=== PATIENT | female | born 1980 | race Caucasian/White ===

== ENCOUNTER 2017-07-06 12:13 | Outpatient (CLI) | payer BC ==
[~2017-07-06] VITALS: Ht 175.3 cm; Wt 86.7 kg
[2017-07-06] MEDS ORDERED: IBUP-1780 PO (12:26)
[2017-07-06] MEDS ORDERED: TRAM50TA2 PO (12:26)
[2017-07-06] MEDS ORDERED: TRAZ100T92 PO (12:26)
[2017-07-06] MEDS ORDERED: ALPR0.25 PO (12:26)
[2017-07-06 12:29] VITALS: BP 111/68
[2017-07-13] MEDS ORDERED: ACHD5005 PO (14:09)
== END 2017-07-06 14:40 | disposition home or self-care (01) ==
LOC: PREOP 12:13 → EDUNIT# 12:30 → PREOP 14:40
PROVIDERS: ATTEND Podiatrist Foot & Ankle Surgery
DX: Z01.818 Encounter for other preprocedural examination (principal); Z11.2 Encounter for screening for other bacterial diseases; M76.62 Achilles tendinitis, left leg; M89.9 Disorder of bone, unspecified
CPT/HCPCS: 87081

== ENCOUNTER 2017-07-13 10:17 | Day surgery (SDC) | payer BC ==
[~2017-07-13] VITALS: Ht 175.3 cm; Wt 86.7 kg
[2017-07-13 10:17] VITALS: BP 116/83
[~2017-07-13 10:17] MED LIST: ALPR0.25 PO; BUPIVACAINE 0.5% 30 ML (SENSORCAINE) VIAL ONE; DEXAMETHASONE 10 MG/ML (DECADRON) 1 ML VIAL ONE; IBUP-1780 PO; TRAM50TA2 PO; TRAZ100T92 PO
[2017-07-13] MEDS ORDERED: ceFAZolin INJECTION 1,000 MG in NS (IVPB) 100 ML IV ONE (10:30)
[2017-07-13] MEDS ORDERED: LIDOCAINE PF 2% 5 ML (XYLOCAINE) VIAL ONE (10:41)
[2017-07-13] MEDS ORDERED: ROCURONIUM 10 MG/ML 5 ML SYRINGE IV ONE (10:41)
[2017-07-13] MEDS ORDERED: ONDANSETRON 4 MG/2 ML (SDV) Z0FRAN ONE (10:41)
[2017-07-13] MEDS ORDERED: DEXAMETHASONE 10 MG/ML (DECADRON) 1 ML VIAL ONE (10:41)
[2017-07-13] MEDS ORDERED: SEVOFLURANE (ULTANE) 15 ML INHAL SOLN ONE ×6 (10:41→14:05)
[2017-07-13] MEDS ORDERED: proPOfol 200 MG/20 ML (DIPRIVAN) VIAL IV ONE ×2 (10:41→12:41)
[2017-07-13] MEDS ORDERED: fentaNYL INJECTION 100 MCG/2 ML AMP ONE ×2 (10:42→14:23)
[2017-07-13] MEDS ORDERED: MIDAZOLAM 2 MG/2 ML (VERSED) VIAL ONE (10:42)
[2017-07-13] MEDS: LACTATED RINGERS 1,000 ML IV PRN ×2 (11:18→13:17)
[2017-07-13] MEDS ORDERED: LORA1TAB38 PO (11:22)
[2017-07-13] MEDS ORDERED: AMOX500T2 PO (11:22)
--- NOTE | 2017-07-13 12:15 | Progress Note-Pre Operative ---
Pre-Operative Progress Note H&P Reviewed The H&P was reviewed, patient examined and no changes noted. Date Seen by Provider: July 13, 2017 Time Seen by Provider: 12:14 Date H&P Reviewed: July 13, 2017 Time H&P Reviewed: 12:14 Pre-Operative Diagnosis: Retrocalcaneal Exostosis, Achilles Tendonosis, left foot ALETHEA PACHECO DPM July 13, 2017 12:15 pm
[2017-07-13] MEDS ORDERED: ROPIVACAINE 5MG/ML 30ML VIAL ONE (13:09)
[2017-07-13] MEDS ORDERED: PHENYLEPHRINE 100 MCG/ML 10 ML (ANESTHESIA) SYR ONE (13:47)
[2017-07-13] MEDS ORDERED: LACTATED RINGERS 1,000 ML IV SCH (14:04)
--- NOTE | 2017-07-13 14:04 | Progress Note-Post Operative ---
Post-Operative Progess Note Surgeon (s)/Material Chaser (s) Surgeon ALETHEA PACHECO DPM Material Chaser: none Pre-Operative Diagnosis Retrocalcaneal Exostosis, Achilles Tendonosis, left foot Post-Operative Diagnosis Same Procedure & Operative Findings Date of Procedure 07/13/17 Procedure Performed/Findings Achilles tendon repair, exostectomy, left foot Anesthesia Type General Estimated Blood Loss Estimated blood loss (mL): Minimal Specimens/Packing Specimens Removed Achilles Tendon ALETHEA PACHECO DPM July 13, 2017 2:04 pm
[2017-07-13] MEDS ORDERED: ACHD5005 PO (14:09)
[2017-07-13] MEDS ORDERED: HYDROcodone/APAP 5 MG/325 MG (LORTAB) TAB PO PRN (14:15)
[2017-07-13] MEDS ORDERED: MEPERIDINE (DEMEROL) INJ 50 MG/ML IVP PRN (14:15)
[2017-07-13] MEDS ORDERED: ONDANSETRON 4 MG/2 ML (SDV) Z0FRAN IVP PRN (14:15)
[2017-07-13] MEDS: fentaNYL INJECTION 100 MCG/2 ML AMP IVP PRN ×3 (14:28→14:40)
--- NOTE | 2017-07-13 15:00 | Anesthesia-General Post-Op ---
General Patient Condition Mental Status/LOC: Same as Preop Cardiovascular: Satisfactory Nausea/Vomiting: Absent Respiratory: Satisfactory Pain: Controlled Complications: Absent Post Op Complications Complications None Follow Up Care/Instructions Patient Instructions None needed. Anesthesia/Patient Condition Patient Condition Patient is doing well, no complaints, stable vital signs, no apparent adverse anesthesia problems. No complications reported per nursing. MARGARETTE CRESPO CRNA July 13, 2017 15:00
[2017-07-13 15:10] VITALS: BP 106/69
[2017-07-13] MEDS ORDERED: HYDROcodone/APAP 5 MG/325 MG (LORTAB) TAB ONE (15:16)
[2017-07-13 15:45] VITALS: BP 108/68
--- NOTE | 2017-07-13 16:18 | Diagnostic Imaging Report ---
INDICATION: Postoperative evaluation, Achilles tendon repair. COMPARISON: None. FINDINGS: Two views of the left foot are obtained through cast material. There are postoperative changes of Achilles tendon repair. Two metallic anchors are seen within the posterior os calcis. Minimal subcutaneous gas along the region of the Achilles tendon is likely postoperative. No additional fracture, malalignment, or osseous destructive process is seen. IMPRESSION: Satisfactory postoperative changes of recent Achilles tendon repair. No acute osseous abnormality is suspected. Dictated by: Dictated on workstation # [id number]
--- NOTE | 2017-07-13 16:27 | Physical Therapy Ortho Eval ---
PT Orthopedic Evaluation Type of Surgery achilles tendon repair. Prior Level of Function Current Living Status: Spouse Locomotion (Upon Admit): Independent Established Durable Medical Eq: None (pt given crutches), Standard Bedside Commode Subjective Subjective Agreeable. Reports she has not used crutches before. Reports she plans to stay on 1 level primarily in her home. Entry Into Home: Stairs Without Railing Steps Into Home: 3 Steps Inside Home: 13 Steps Accessories: No Railing Motor Control Motor Control: Motor Control WNL ROM ROM: WFL Strength Strength: WFL Transfer Transfers (B, C, W/C) (FIM): 5 (6 post treatment) Gait Gait Assistive Device: Crutches Right Lower Extremity: Right Weight Bearing Status RLE: Full Weight Bearing Left Lower Extremity: Left Weight Bearing Status LLE: Non Weight Bearing Other Weight Bearing Inst.: instuctions on NWB status Gait (FIM): 5 (6 post treatment) Distance (FIM): 3=150 ft Summary/Comments Gait training and education on safe use of crutches. Adjusted the crutches. Educated on height adjustment of crutches. Educated pt on stairs. Stair training. Also educated on going up/down steps on her buttock if necessary and demosntrated how to perform, verbalized understanding. Treatment Rendered Treatment: Gait Train, Step Train (practiced and demonstrated. ) Assessment/Goals Goal Time Frame: 1 Visit Understands HEP: Yes Safe Ambulation: Yes Safe gait on level surfaces and stairs. Plan Treatment Plan: Discharge Treatment Duration: 1 visit PT/Family Agrees to Plan: Yes Time Time In: 1600 Time Out: 1627 Total Billed Treatment Time: 27 Billed Treatment Time visit EVL 27 LIBBY MOULTON PT July 13, 2017 16:27
[2017-07-13 16:30] VITALS: BP 110/70
[2017-07-13 17:07] VITALS: BP 110/70
--- NOTE | 2017-07-13 22:29 | OPERATIVE REPORT ---
DATE OF SERVICE: 07/13/2017 SURGEON: Sheila Pacheco DPM. PREOPERATIVE DIAGNOSES: Achilles tendinosis with exostectomy, left foot. POSTOPERATIVE DIAGNOSES: Achilles tendinosis with exostectomy, left foot. PROCEDURES: 1. Achilles tendon repair, left. 2. Exostectomy retrocalcaneal, left. WOUND CLASS: Clean. ANESTHESIA: General. HEMOSTASIS: Pneumatic thigh tourniquet at 250 mmHg. INDICATIONS: This 36-year-old female presents complaining of chronic pain to the posterior aspect of the left calcaneus and a distal Achilles tendon. Conservative therapy has met with unsatisfactory results and the patient is agreeable to surgical intervention after risks and complications were discussed at length. No guarantees were extended to the patient and she is willing to proceed. DESCRIPTION OF PROCEDURE: The patient was brought back to the operating table, placed in secure supine position. A general anesthetic was induced and she was placed in a prone position on the surgical table. Appropriate time out was performed. A pneumatic thigh tourniquet was placed on the left lower extremity over several layers of padding. The left lower extremity had a popliteal block performed per anesthesia department. The left foot was then prepped and draped in normal sterile manner. The left foot was then elevated and allowed to exsanguinate after which the tourniquet was inflated to 250 mmHg. Attention was then directed to the posterior aspect of the left calcaneus and distal Achilles tendon, where a 5 cm long curvilinear incision was created just medial to the midline. The incision was deepened in the same plane with great care to identify and retract all vital neurovascular structures. All the necessary blood vessels were cauterized as encountered. The peritenon was incised longitudinally. Next, the longitudinal incision was created to the distal Achilles tendon down to bone where the retrocalcaneal exostosis was identified and resected utilizing an osteotome and mallet. The area was further contoured and smoothed with a hand and power rasp. Midsubstance of the distal Achilles tendon was palpated and found to have some nodules within them, which were resected sharply. The thickness of the distal Achilles tendon was debulked noting some yellow discoloration to portion of the distal Achilles tendon. No other pathology was identified at this time. The wound was flushed with copious amounts of normal saline. Two commercial drone pilot holes were created to the medial and lateral aspect of the posterior calcaneus just medial and lateral to the midline. Two G2 Mitek anchors were then placed to the posterior aspect of the left calcaneus utilizing the supplied suture where the Achilles tendon was then tacked down to the posterior calcaneus. The midline incision to the Achilles tendon was repaired with a 3-0 Vicryl in a running suture. The periosteum was also repaired with 3-0 Vicryl, subcutaneous tissue was repaired with 4-0 Vicryl, skin closed with 4-0 Prolene in a horizontal mattress type stitch. Postoperative dressing was then applied after the tourniquet was released. The dressing included the Betadine soaked Adaptic, sterile 4 x 4s, Kerlix, soft roll, 3 ABDs and a 6-inch Oumar wrap overlying the posterior splint. The patient tolerated the anesthesia and procedure well, was transferred from the operating room to the recovery area with vital signs stable and vascular status intact to all digits of the left foot. She is to be nonweightbearing on the left lower extremity. We will see her back in the office in 10 days' period of time or sooner if necessary. Job ID: [id number] DocumentID: [id number] Dictated Date: 07/13/2017 14:14:58 Fitting Room Maintenance Mechanic Date: 07/13/2017 22:28:04 Dictated By: SHEILA PACHECO DPM
== END 2017-07-13 17:07 | disposition home or self-care (01) ==
LOC: SDC 10:17
PROVIDERS: ATTEND Podiatrist Foot & Ankle Surgery
DX: M76.62 Achilles tendinitis, left leg (principal); F41.9 Anxiety disorder, unspecified; Z88.5 Allergy status to narcotic agent
CPT/HCPCS: 73620; 84703; 88304